=== PATIENT | female | born 1945 | race Caucasian/White ===

== ENCOUNTER 2020-02-18 09:18 | Day surgery (SDC) | payer MEDICARE, OTHER ==
[~2020-02-18 09:18] MED LIST: Lactated Ringers 1,000 ML IV SCH; Sodium Chloride 0.9% 10 ML Syringe FLUSH PRN
[2020-02-18] MEDS ORDERED: Propofol 200 MG/20 ML SDV ONE (09:28)
[2020-02-18] MEDS ORDERED: fentaNYL 100 MCG/2 ML SDV ONE (09:29)
[2020-02-18 11:32] VITALS: BP 145/60; PULSE 52
--- NOTE | 2020-02-18 13:41 | OR ---
DATE OF SURGERY: 02/18/2020. REFERRING PROVIDER: Ayla Murrieta DO PRE-OPERATIVE DIAGNOSES: Positive family history of colon cancer. The patient's last colonoscopy was 5 years ago. POST-OPERATIVE DIAGNOSES: 1. 2 mm polyp near ileocecal valve removed with cold forceps. 2. Moderate left-sided diverticulosis. 3. Mild hemorrhoids with moderate hemorrhoidal skin tags externally, not acutely inflamed. PROCEDURE: Colonoscopy with polypectomy x1 using cold forceps. SURGEON: Alex Garza M.D. ANESTHESIA: Monitored anesthesia care. BOWEL PREP: Good. Brenda is a 74-year-old female who was brought to the endoscopy suite after discussing risks and benefits of the procedure. Informed consent was obtained for conscious sedation and colonoscopy with or without biopsy and/or polypectomy. We also discussed possibility of missed lesions. Pre-procedure exam was unremarkable. IV, oxygen, and monitors were placed. The patient was placed in the left lateral decubitus position. Sedation was administered and a digital rectal exam was performed and remarkable for moderate external hemorrhoidal skin tags, not acutely inflamed. Colonoscope was passed into the rectum and slowly advanced all the way to the cecum. Cecum was viewed and photographed. Ileocecal valve was intubated and distal ileum was normal in appearance. Near the ileocecal valve, there was noted to be 2 mm polyp removed with cold forceps. The colonoscope was slowly withdrawn and the mucosa was closed observed in a direct circumferential manner. The ascending colon was unremarkable. The transverse colon was unremarkable. The descending colon and sigmoid colon revealed some moderate diverticulosis. Retroflexion was performed and rectal mucosa was unremarkable. Scope was removed. The patient tolerated the procedure well. The patient was monitored until that baseline status. Discharge instructions were reviewed and the patient was discharged in good condition. COMPLICATIONS: None. TOTAL TIME: 25 minutes. ESTIMATED BLOOD LOSS: Less than 1 mL. RECOMMENDATIONS/FOLLOW-UP: We will await results of path report to determine ideal followup interval. I would like to kindly thank Ayla Murrieta for this referral. DMB: 02/18/2020 11:33:51 MODL: 02/18/2020 13:10:29 /[id number]
== END 2020-02-18 12:50 | disposition home or self-care (01) ==
LOC: VM.SDS 09:18
PROVIDERS: ATTEND Family Medicine
DX: Z12.11 Encounter for screening for malignant neoplasm of colon (principal); D12.0 Benign neoplasm of cecum; K57.30 Diverticulosis of large intestine without perforation or abscess without bleeding; K64.4 Residual hemorrhoidal skin tags; E78.5 Hyperlipidemia, unspecified; K21.9 Gastro-esophageal reflux disease without esophagitis; E66.9 Obesity, unspecified; F41.9 Anxiety disorder, unspecified; N95.2 Postmenopausal atrophic vaginitis; Z01.812 Encounter for preprocedural laboratory examination; Z20.828 Contact with and (suspected) exposure to other viral communicable diseases; Z88.1 Allergy status to other antibiotic agents; Z80.0 Family history of malignant neoplasm of digestive organs; Z79.899 Other long term (current) drug therapy; Z68.29 Body mass index [BMI] 29.0-29.9, adult; Z79.890 Hormone replacement therapy
CPT/HCPCS: 88305; J2704; J3010; J7120; U0002

== ENCOUNTER 2024-11-21 13:15 | Emergency (ER) | payer MEDICARE, OTHER ==
[2024-11-21] MEDS ORDERED: Sodium Chloride 0.9% 10 ML Syringe FLUSH PRN (13:23)
[2024-11-21 13:32] LABS: BASOPHILS PERCENT AUTO 0.4 % (0.2-1.2); EOSINOPHILS ABSOLUTE AUTO 0.1 x10^3/uL (0.0-0.5); EOSINOPHILS PERCENT AUTO 2.5 % (0.0-4.0); HEMATOCRIT 42.9 % (33.0-47.0); HEMOGLOBIN 14.2 g/dL (12.0-16.0); IMMATURE GRAN ABSOLUTE AUTO 0.02 x10^3/uL (0.00-0.07); LYMPHOCYTES ABSOLUTE AUTO 1.7 x10^3/uL (1.0-4.8); LYMPHOCYTES PERCENT AUTO 31.7 % (25.0-50.0); MEAN CORPUSCULAR HEMOGLOBIN 28.8 pg (26.0-32.0); MEAN CORPUSCULAR HGB CONC 33.1 g/dL (32.0-36.0); MONOCYTES ABSOLUTE AUTO 0.4 x10^3/uL (0.0-0.8); MONOCYTES PERCENT AUTO 7.4 % (2.0-11.0); NEUTROPHILS ABSOLUTE AUTO 3.1 x10^3/uL (1.8-7.7); NEUTROPHILS PERCENT AUTO 57.6 % (50.0-80.0); PLATELET COUNT,PLT 182 x10^3/uL (130-400); RED BLOOD CELL COUNT 4.93 x10^6/uL (4.00-5.50); WHITE BLOOD CELL COUNT,WBC 5.3 x10^3/uL (4.0-10.0)
[2024-11-21 13:37] VITALS: PULSE 58
[2024-11-21 14:11] LABS: PROTHROMBIN TIME 10.7 SEC (9.6-12.0); PTT,PARTIAL THROMBOPLSTIN TIME 27.3 SEC (23.5-33.2)
[2024-11-21 14:13] VITALS: BP 122/60
[2024-11-21 14:15] LABS: A/G RATIO 1.32; ALBUMIN 3.7 g/dL (3.4-5.0); BILIRUBIN TOTAL 0.7 mg/dL (0.2-1.0); CALCIUM 8.8 mg/dL (8.5-10.1); CREATININE 0.8 mg/dL (0.55-1.02); EST CRCL DRUG DOSING (CG) 54.25 mL/min; POTASSIUM,K 3.9 mmol/L (3.5-5.1); PROTEIN TOTAL,TP 6.5 g/dL (6.4-8.2)
== END 2024-11-21 14:23 | disposition home or self-care (01) ==
LOC: SUPCPDRO 13:15 → VM.ED 13:15
DX: R07.89 Other chest pain (principal); I10 Essential (primary) hypertension; E78.00 Pure hypercholesterolemia, unspecified; E66.9 Obesity, unspecified; Z88.8 Allergy status to other drugs, medicaments and biological substances; Z79.899 Other long term (current) drug therapy; Z68.29 Body mass index [BMI] 29.0-29.9, adult
CPT/HCPCS: 71045; 80053; 83735; 84484; 85025; 85610; 85730; 93005; 93010; 99284; 99285

== ENCOUNTER 2025-03-11 09:31 | Day surgery (SDC) | payer MEDICARE, OTHER ==
[~2025-03-11 09:31] MED LIST changes: -Lactated Ringers 1,000 ML IV SCH; +Propofol 200 MG/20 ML SDV ONE; -Sodium Chloride 0.9% 10 ML Syringe FLUSH PRN; +fentaNYL 100 MCG/2 ML SDV ONE
[2025-03-11] MEDS: Lactated Ringers 1,000 ML IV SCH (09:47)
[2025-03-11] MEDS ORDERED: Atropine 0.4 MG/ML SDV ONE (11:17)
[2025-03-11] MEDS ORDERED: Propofol 200 MG/20 ML SDV ONE (11:25)
[2025-03-11 12:08] VITALS: BP 164/72; PULSE 51
== END 2025-03-11 12:40 | disposition home or self-care (01) ==
LOC: VM.SDS 09:31
PROVIDERS: ATTEND Family Medicine
DX: Z12.11 Encounter for screening for malignant neoplasm of colon (principal); D12.0 Benign neoplasm of cecum; D12.3 Benign neoplasm of transverse colon; K57.30 Diverticulosis of large intestine without perforation or abscess without bleeding; E66.3 Overweight; I10 Essential (primary) hypertension; E78.5 Hyperlipidemia, unspecified; Z80.0 Family history of malignant neoplasm of digestive organs; Z88.8 Allergy status to other drugs, medicaments and biological substances; Z79.899 Other long term (current) drug therapy; Z86.0101 Personal history of adenomatous and serrated colon polyps
CPT/HCPCS: 00811; 88305; 99100; J0461; J2704; J3010; J7120